=== PATIENT | female | born 1985 | race African-American/Black ===

== ENCOUNTER 2017-02-28 21:41 | Inpatient (IN) ==
[2017-02-28] MEDS ORDERED: LACTATED RINGERS 1,000 ML IV ONE (21:53)
[2017-02-28] MEDS ORDERED: MEPERIDINE 50 MG/1 ML VIAL IV PRN (21:53)
[2017-02-28] MEDS ORDERED: ONDANSETRON 4 MG/2 ML VIAL IV PRN ×3 (21:53→22:59)
[2017-02-28] MEDS ORDERED: BUTORPHANOL 1 MG/ML VIAL IV PRN (21:53)
[2017-02-28] MEDS ORDERED: OXYTOCIN/LR 20 UNIT/1,000 ML BAG IV ONE (21:56)
[2017-02-28] MEDS ORDERED: AMPICILLIN INJ 2,000 MG in SODIUM CHLORIDE 0.9% 100 ML IV SCH (22:00)
[2017-02-28 22:15] LABS: Basophils % 0.2 % (0.0-0.8); Eosinophils # 0.1 10*3/uL (0.0-0.87); Eosinophils % 0.9 % (0.00-10.9); Hemoglobin 10.8 GM/DL (12.0-16.0); Lymphocytes # 1.7 10*3/uL (1.4-4.0); Lymphocytes % 16.3 % (21.3-54.2); Mean Corpuscular HGB Conc 32.7 GM/DL (32-36); Mean Corpuscular Hemoglobin 27 PG (27-34); Mean Corpuscular Volume 82.3 FL (87-102); Mean Platelet Volume 11.5 FL (9.6-12.0); Monocytes # 0.6 10*3/uL (0.11-0.8); NRBC # 0.02 10*3/uL; Neutrophils # 7.8 10*3/uL (1.4-7.4); Neutrophils % 75.6 % (38.7-73.9); Platelet Count 157 T/CUMM (130-400); Red Blood Count 4.01 MC/CUMM (3.8-5.5); Red Cell Distribution Width 15.2 % (9.3-17.3); White Blood Count 10.2 T/CUMM (4-12)
[2017-02-28] MEDS ORDERED: ePHEDrine 50 MG/ML AMP IV PRN (22:23)
[2017-02-28] MEDS ORDERED: PROMETHAZINE 25 MG/1 ML VIAL IM ONE (22:23)
[2017-02-28] MEDS ORDERED: hydrOXYzine HCL 25 MG/1 ML VIAL IM PRN (22:23)
[2017-02-28] MEDS ORDERED: diphenhydrAMINE 50 MG/1 ML VIAL IV PRN ×2 (22:23)
[2017-02-28] MEDS ORDERED: fentaNYL 2 MCG/ROPIV 0.2% EPID 150 ML EPIDURAL SCH (22:23)
[2017-02-28] MEDS ORDERED: CITRIC ACID/SODIUM CITRATE 30 ML UDCUP PO ONE (22:26)
[2017-02-28] MEDS ORDERED: FAMOTIDINE 20 MG/2 ML VIAL IV ONE (22:26)
[2017-02-28 22:34] LABS: Alanine Aminotransferase 20 U/L (13-56); Albumin 2.3 G/DL (3.4-5.0); Alkaline Phosphatase 216 U/L (45-117); Aspartate Amino Transferase 30 U/L (0-37); Bilirubin,Total < 0.39 MG/DL (0.2-1.0); Blood Urea Nitrogen 4 MG/DL (7-18); Calcium 8.5 MG/DL (8.5-10.1); Glucose 99 MG/DL (74-106); Osmolality,Calculated 273.5 MOS/KG (273-304); Potassium 3.5 MMOL/L (3.5-5.1); Sodium 139 MMOL/L (136-145); Total Protein 7.1 G/DL (6.4-8.3)
[2017-02-28] MEDS: OXYTOCIN/LR 20 UNIT/1,000 ML BAG IV ONE (22:36)
[2017-02-28] MEDS ORDERED: LIDOCAINE 1% 50 ML VIAL ONE (22:45)
[2017-02-28 22:53] LABS: Cord Venous Blood HCO3 24.9 MMOL/L; Cord Venous Blood PCO2 37.4 MMHG; Cord Venous Blood PO2 27.7 MMHG
--- NOTE | 2017-02-28 22:55 | OB/GYN History & Physical ---
History of Present Illness Chief complaint: Active labor History of present illness: Ms. Escobedo is a 31 year old female 6 para 5 with 5 living kids and 39 weeks and 6 days. Patient arrived at 2150 approximately 3 cm dilated spontaneous rupture membranes and marla very regularly. Fluid demonstrated meconium staining. No active bleeding noted. heart tones are category 1. Home Medications Medication Instructions Recorded Confirmed Type No Known Home Medications [No 02/08/17 02/28/17 History Known Home Medications] Allergies Allergy/AdvReac Type Severity Reaction Status Date / Time No Known Allergies Allergy Verified 02/08/17 05:40 Medical,Surgical,& Family Hx - Medical History Reproductive: History of: Reproductive Problems (OVARY REMOVAL) No history of: Ectopic , Complication - Surgical History Reproductive Surgeries: Surgical HX of;: Gynecologic Surgery (Left ovary removed ) Patient denies;: Section - Family History Family History: Denies;: Family Anesthesia Reaction, Family Cancer, Family Diabetes, Family Heart Disease, Family Hypertension, Family Psychiatric Problems, Family Stroke - Social History Smoking Status: Current every day smoker 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 - Constitutional Vitals: Vital Signs Temp Pulse Resp BP Pulse Ox 02/28/17 21:56 97.1 F L 85 20 136/78 99 General appearance: mild distress - Antepartum / Post Antepartum Exam Cervix - Dilatation: 3 Effacement: 100% Station: -2 Rupture: Meconium - Head Head exam: Present: normal inspection - Eye Eye exam: Present: EOMI Pupils: Present: PINA - ENT ENT exam: Present: normal exam - Neck Neck exam: Present: normal inspection - Respiratory Respiratory exam: Present: clear to auscultation bilaterally - Breast Breasts: as per HPI Menstruation: as per HPI - Cardiovascular Cardiovascular exam: Present: regular rate and rhythm - GI/Abdominal GI/Abdominal exam: Present: normal bowel sounds - Extremities Exam Extremities exam: Present: normal inspection - Back Exam Back exam: Present: normal inspection - Neurological Exam Neurological exam: Present: alert, oriented X3 - Psychiatric Psychiatric exam: Present: normal affect, agitated, anxious - Skin Skin exam: Present: normal color Assessment and Plan (1) Active labor at term Status: Acute Assessment and plan: Anticipate Current Visit: Yes Results - Labs CBC & BMP: 02/28/17 22:11 02/28/17 22:11 Quality Measures - VTE Contraindication to Pharmacological VTE Prophylaxis: Clinical assessment deems Pt at low risk, no prophalaxis needed
--- NOTE | 2017-02-28 22:58 | Event Note ---
Stage I of labor patient admitted at 2150 heart tones category 1 Spontaneous rupture fluid meconium External monitoring Stage II Delivery of a female as I was arriving into the hospital. Delivery was 2234 Cord blood and cord gas obtained Apgars were 9 and 9 weight is pending mother is bonding at this time Stage III Spontaneous deliver the placenta 3 cord vessels noted Blood loss was less than 200 cc There was a left labial laceration that was repaired with 3-0 chromic using 2 interrupted sutures.
[2017-02-28] MEDS ORDERED: LANOLIN 50% CREAM 0.3 OZ TUBE TOP PRN (22:59)
[2017-02-28] MEDS ORDERED: MEASLES/MUMPS/RUBELLA VACCINE 0.5 ML VIAL SUBCUT ONE (22:59)
[2017-02-28] MEDS ORDERED: WITCH HAZEL PADS 100/JAR TOP PRN (22:59)
[2017-02-28] MEDS ORDERED: DIPH/TET/ACEL PERT BOOSTER VACCINE 0.5 ML VIAL IM ONE (22:59)
[2017-02-28] MEDS ORDERED: ACETAMINOPHEN 325 MG TABLET PO PRN (22:59)
[2017-02-28] MEDS ORDERED: RHO(D) IMMUNE GLOBULIN 300 MCG SYRINGE IM ONE (22:59)
[2017-02-28] MEDS ORDERED: BISACODYL 10 MG SUPP RECTAL PRN (22:59)
[2017-02-28] MEDS ORDERED: oxyCODONE/ACETAMINOPHEN 5-325 MG TABLET PO PRN ×2 (22:59)
[2017-02-28] MEDS ORDERED: HYDROCORTISONE 2.5% RECTAL CREAM 30 GM TUBE TOP PRN (22:59)
[2017-02-28] MEDS ORDERED: BENZOCAINE 20%/MENTHOL 0.5% SPRAY 56 GM CAN TOP PRN (22:59)
[2017-02-28] MEDS ORDERED: LACTATED RINGERS 1,000 ML IV SCH (23:00)
[2017-03-01] MEDS: OXYTOCIN/LR 20 UNIT/1,000 ML BAG IV ONE (01:55)
[2017-03-01] MEDS: IBUPROFEN 800 MG TABLET PO PRN ×2 (01:59→08:10)
[2017-03-01 05:22] LABS: Basophils % 0.1 % (0.0-0.8); Eosinophils # 0.1 10*3/uL (0.0-0.87); Eosinophils % 0.4 % (0.00-10.9); Hematocrit 34.3 VOL% (35.7-47.0); Hemoglobin 11.3 GM/DL (12.0-16.0); Immature Granulocytes % 0.7 %; Immature Granulocytes Absolute 0.09 #; Lymphocytes # 1.5 10*3/uL (1.4-4.0); Lymphocytes % 10.8 % (21.3-54.2); Mean Corpuscular HGB Conc 32.9 GM/DL (32-36); Mean Corpuscular Hemoglobin 28 PG (27-34); Mean Corpuscular Volume 83.9 FL (87-102); Mean Platelet Volume 11.9 FL (9.6-12.0); Monocytes # 0.7 10*3/uL (0.11-0.8); Monocytes % 4.9 % (1.7-12.7); Neutrophils # 11.4 10*3/uL (1.4-7.4); Neutrophils % 83.1 % (38.7-73.9); Platelet Count 148 T/CUMM (130-400); Red Blood Count 4.09 MC/CUMM (3.8-5.5); White Blood Count 13.7 T/CUMM (4-12)
[2017-03-01] MEDS: DOCUSATE SODIUM 100 MG CAPSULE PO SCH ×2 (08:11→20:20)
--- NOTE | 2017-03-01 09:31 | OB/GYN Progress Note ---
Assessment and Plan (1) Vaginal delivery Status: Acute Assessment and plan: Initiate routine orders. 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 Bonding well with infant. 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 - Constitutional Vitals: Vital Signs Temp Pulse Resp BP Pulse Ox 03/01/17 06:00 18 03/01/17 05:00 20 03/01/17 04:33 97.2 F L 59 L 18 123/70 03/01/17 04:00 18 03/01/17 03:00 18 03/01/17 02:03 97.1 F L 62 18 134/92 03/01/17 02:00 18 03/01/17 00:00 97.7 F 64 20 120/67 02/28/17 21:56 97.1 F L 85 20 136/78 99 General appearance: no acute distress - Antepartum / Post Post Exam Breast: bilateral: normal Abdomen obstetrics: Present: bowel sounds normal Vagina: Present: normal moisture, discharge (Moderate lochia rubra) Uterus exam: Present: enlarged (Fundus firm and midline) Anus/Rectum: Present: normal perianal skin - Respiratory Respiratory exam: Present: clear to auscultation bilaterally - Cardiovascular Cardiovascular exam: Present: regular rate and rhythm - GI/Abdominal GI/Abdominal exam: Present: normal bowel sounds, soft - Extremities Exam Extremities exam: Present: normal inspection - Back Exam Back exam: Present: normal inspection - Neurological Exam Neurological exam: Present: alert, oriented X3 - Psychiatric Psychiatric exam: Present: normal affect, normal mood - Skin Skin exam: Present: normal color, warm Results - Labs CBC & BMP: 03/01/17 04:41 02/28/17 22:11
[2017-03-02] MEDS: IBUPROFEN 800 MG TABLET PO PRN ×2 (01:51→10:44)
[2017-03-02 07:07] VITALS: BP 118/66
[2017-03-02] MEDS: DOCUSATE SODIUM 100 MG CAPSULE PO SCH (10:21)
--- NOTE | 2017-03-02 10:31 | Discharge Summary ---
Hospital Course - Hospital Course Hospital Course: Ms. Escobedo presented to the labor department in active labor. She subsequently delivered a viable infant with no complications. She has followed a normal course and she has done well. Her bleeding is minimal with no odor. Her vital signs and lab values are stable. She is bonding well with her . Her perineum is intact with no edema. Her fundus is firm and midline. Contraception options has been discussed with this patient and she desires to have her tubes tied. She was scheduled for elective bilateral tubal ligation in the near future. She will be discharged to home with prescriptions for pain and follow-up appointment in our office. Diagnosis - Discharge Diagnosis (1) Vaginal delivery Status: Acute Specialty Discharge - Follow Up or Referrals Follow up with: Bharat Rose MD [Physician] - 1 Month Discharge Plan - Discharge Data Disposition: Disch To Home/Self Care Condition at Discharge: Stable Discharge Diet: advance to your usual diet, regular diet Activity: resume usual activities as tolerated Hygiene: no restrictions Weight Bearing at Discharge: weight bear as tolerated Driving: no restrictions Contact your physician if you experience:: fever over 101, pain uncontrolled by pain medications - Discharge Medications New Ibuprofen Tab [Motrin Tab] 800 mg PO Q6H PRN #30 tablet PRN Reason: Pain Moderate (4-7) Acetamin/Codeine 300-30 Tab [Tylenol/Codeine #3] 2 tablet PO Q4H PRN #30 tablet PRN Reason: Pain Mild To Moderate (1-7) No Action No Known Home Medications [No Known Home Medications] - Follow Up or Referral Follow Up: Bharat Rose MD [Physician] - - Forms/Instructions Instructions: Perineal Care (DC), Vaginal Delivery (DC), Bleeding (DC) Exam - Constitutional Vitals: Period Temp Pulse Resp BP Sys/Ramos Pulse Ox Last 24 Hr 96.7 F-98.6 F 74-96 18-20 99-118/61-69 96-99 General appearance: no acute distress - Head Head exam: Present: normal inspection - Respiratory Respiratory exam: Present: clear to auscultation bilaterally - Cardiovascular Cardiovascular exam: Present: regular rate and rhythm - GI/Abdominal GI/Abdominal exam: Present: normal bowel sounds, soft - Extremities Exam Extremities exam: Present: normal inspection - Neurological Exam Neurological exam: Present: alert, oriented X3 - Psychiatric Psychiatric exam: Present: normal affect, normal mood - Skin Skin exam: Present: normal color, warm DS: Provider Date of admission: 02/28/17 21:53 Primary care physician: . No PCP Attending physician on admission: Bharat Rose MD Consults: 02/28/17 21:53 Consult to Anesthesiology [CONS] Routine Consulting Provider: Reason for Anesthesiology: Epidural Consult Comment: Epidural for pain managment 02/28/17 22:59 Consult to Computer Customer Support Specialist [CONS] Routine Consult Computer Customer Support Specialist: Breast Feeding Discharging clinician: Kamila Obrien CNM Expected date of discharge: 03/02/17
== END 2017-03-02 12:55 | disposition home or self-care (01) | DRG 560 ==
LOC: N.LDOUT 21:41 → N.LD 21:43 → N.OB 03-01 11:22
PROVIDERS: ADMIT Obstetrics & Gynecology; ATTEND Obstetrics & Gynecology

== ENCOUNTER 2019-01-05 04:00 | Inpatient (IN) ==
[2019-01-05] MEDS ORDERED: ONDANSETRON 4 MG/2 ML VIAL IV PRN (04:40)
[2019-01-05] MEDS ORDERED: BUTORPHANOL 2 MG/ML VIAL IV PRN (04:40)
[2019-01-05] MEDS ORDERED: MEPERIDINE 50 MG/1 ML VIAL IV PRN (04:40)
[2019-01-05] MEDS ORDERED: AMPICILLIN INJ 2,000 MG in SODIUM CHLORIDE 0.9% 100 ML IV ONE (04:44)
[2019-01-05] MEDS ORDERED: FAMOTIDINE 20 MG/2 ML VIAL IV PRN (04:45)
[2019-01-05] MEDS ORDERED: ePHEDrine 50 MG/ML AMP IV PRN (04:46)
[2019-01-05] MEDS ORDERED: CITRIC ACID/SODIUM CITRATE 30 ML UDCUP PO PRN (04:46)
[2019-01-05] MEDS ORDERED: LACTATED RINGERS 1,000 ML IV SCH ×2 (05:00→07:30)
[2019-01-05] MEDS ORDERED: fentaNYL 2 MCG/ROPIV 0.2% EPID 100 ML EPIDURAL SCH (05:00)
[2019-01-05 05:21] LABS: Basophils % 0.3 % (0.0-0.8); Eosinophils # 0.1 10*3/uL (0.0-0.87); Eosinophils % 0.7 % (0.00-10.9); Hematocrit 31.7 VOL% (35.7-47.0); Hemoglobin 9.8 GM/DL (12.0-16.0); Immature Granulocytes % 0.8 %; Immature Granulocytes Absolute 0.08 #; Lymphocytes # 2.1 10*3/uL (1.4-4.0); Lymphocytes % 20.8 % (21.3-54.2); Mean Corpuscular HGB Conc 30.9 GM/DL (32-36); Mean Corpuscular Volume 75.3 FL (87-102); Mean Platelet Volume 11.7 FL (9.6-12.0); Monocytes % 7.4 % (1.7-12.7); Platelet Count 145 T/CUMM (130-400); Red Blood Count 4.21 MC/CUMM (3.8-5.5); Red Cell Distribution Width 16.5 % (9.3-17.3)
[2019-01-05] MEDS ORDERED: miSOPROStol 200 MCG TABLET ONE (05:23)
[2019-01-05] MEDS ORDERED: LIDOCAINE 1% 50 ML VIAL ONE (05:23)
[2019-01-05 05:50] LABS: Anisocytosis Slight; Microcytosis 3+
[2019-01-05 05:51] LABS: Polychromasia Slight; Tear Drop Cells Few
[2019-01-05] MEDS: OXYTOCIN/LR 20 UNIT/1,000 ML BAG IV SCH ×2 (05:51→09:00)
[2019-01-05 05:52] LABS: Hypochromasia Slight; Platelet Estimate Normal; Stomatocytes Slight
[2019-01-05 05:53] LABS: Alanine Aminotransferase 11 U/L (13-56); Albumin 2.2 G/DL (3.4-5.0); Alkaline Phosphatase 220 U/L (45-117); Aspartate Amino Transferase 23 U/L (0-37); Bilirubin,Total < 0.39 MG/DL (0.2-1.0); Blood Urea Nitrogen 7 MG/DL (7-18); Calcium 8.6 MG/DL (8.5-10.1); Glucose 85 MG/DL (74-106); Osmolality,Calculated 273.5 MOS/KG (273-304); Total Protein 7.1 G/DL (6.4-8.3)
[2019-01-05 06:02] LABS: Cord Venous Blood HCO3 23.7 MMOL/L; Cord Venous Blood PCO2 37.2 MMHG; Cord Venous Blood PO2 35.2
[2019-01-05] MEDS ORDERED: ACETAMINOPHEN 325 MG TABLET PO PRN (07:13)
[2019-01-05] MEDS ORDERED: BISACODYL 10 MG SUPP RECTAL PRN (07:13)
[2019-01-05] MEDS ORDERED: MAGNESIUM HYDROXIDE SUSP 30 ML UDCUP PO PRN (07:13)
[2019-01-05 07:36] LABS: Hepatitis B Surface Ag Quant < 0.10 Index; Hepatitis B Surface Ag Result Negative (Negative)
[2019-01-05 08:19] LABS: HIV Antigen/Antibody Result Nonreactive (Nonreactive)
[2019-01-05] MEDS: IBUPROFEN 800 MG TABLET PO PRN ×2 (08:58→20:07)
[2019-01-05] MEDS: DOCUSATE SODIUM 100 MG CAPSULE PO SCH ×2 (08:59→20:12)
[2019-01-05] MEDS ORDERED: AMPICILLIN INJ 1,000 MG in SODIUM CHLORIDE 0.9% 100 ML IV SCH (09:00)
[2019-01-05] MEDS ORDERED: MULTIVITAMIN (PRENATAL) TABLET PO SCH (12:09)
[2019-01-05] MEDS ORDERED: BENZOCAINE 20%/MENTHOL 0.5% SPRAY 56 GM CAN TOP PRN (19:56)
[2019-01-05] MEDS: MULTIVITAMIN (PRENATAL) TABLET PO SCH (21:59)
[2019-01-06 05:17] LABS: Basophils % 0.5 % (0.0-0.8); Eosinophils # 0.2 10*3/uL (0.0-0.87); Eosinophils % 2.3 % (0.00-10.9); Hematocrit 29.8 VOL% (35.7-47.0); Hemoglobin 9.1 GM/DL (12.0-16.0); Immature Granulocytes % 0.7 %; Immature Granulocytes Absolute 0.06 #; Lymphocytes # 2.1 10*3/uL (1.4-4.0); Lymphocytes % 24.9 % (21.3-54.2); Mean Corpuscular HGB Conc 30.5 GM/DL (32-36); Mean Corpuscular Volume 75.8 FL (87-102); NRBC # 0.02 10*3/uL; Neutrophils % 64.6 % (38.7-73.9); Platelet Count 145 T/CUMM (130-400); Red Blood Count 3.93 MC/CUMM (3.8-5.5); Red Cell Distribution Width 16.5 % (9.3-17.3); White Blood Count 8.6 T/CUMM (4-12)
[2019-01-06 05:45] LABS: Anisocytosis 1+; Hypochromasia 1+; Microcytosis 1+; Platelet Estimate Adequate
[2019-01-06] MEDS: IBUPROFEN 800 MG TABLET PO PRN ×2 (08:51→16:12)
[2019-01-06] MEDS: DOCUSATE SODIUM 100 MG CAPSULE PO SCH ×2 (08:52→20:43)
[2019-01-06] MEDS: MULTIVITAMIN (PRENATAL) TABLET PO SCH (08:53)
[2019-01-06] MEDS ORDERED: ALUMINUM/MAGNES/SIMETH MAX STR 30 ML UDCUP PO PRN (20:32)
[2019-01-07] MEDS ORDERED: ONDANSETRON 4 MG TABLET PO PRN (03:54)
[2019-01-07] MEDS: IBUPROFEN 800 MG TABLET PO PRN (04:55)
[2019-01-07 05:14] LABS: Basophils % 0.4 % (0.0-0.8); Eosinophils # 0.3 10*3/uL (0.0-0.87); Immature Granulocytes % 1.2 %; Lymphocytes # 2.4 10*3/uL (1.4-4.0); Lymphocytes % 29.6 % (21.3-54.2); Mean Corpuscular Volume 76.5 FL (87-102); Mean Platelet Volume 12.2 FL (9.6-12.0); Monocytes % 5.8 % (1.7-12.7); NRBC # 0.03 10*3/uL; Platelet Count 162 T/CUMM (130-400); Red Blood Count 3.79 MC/CUMM (3.8-5.5); Red Cell Distribution Width 16.8 % (9.3-17.3); White Blood Count 8.2 T/CUMM (4-12)
[2019-01-07 07:20] VITALS: BP 105/60
[2019-01-07] MEDS: MULTIVITAMIN (PRENATAL) TABLET PO SCH (07:59)
[2019-01-07] MEDS: DOCUSATE SODIUM 100 MG CAPSULE PO SCH (08:01)
== END 2019-01-07 11:40 | disposition home or self-care (01) | DRG 560 ==
LOC: N.LDOUT 04:00 → N.LD 04:02 → N.OB 11:00
PROVIDERS: ADMIT Obstetrics & Gynecology; ATTEND Obstetrics & Gynecology

== ENCOUNTER 2020-10-11 20:24 | Inpatient (IN) ==
[2020-10-11] MEDS ORDERED: MEPERIDINE 50 MG/1 ML VIAL IV PRN (20:34)
[2020-10-11] MEDS ORDERED: BUTORPHANOL 2 MG/ML VIAL IV PRN (20:34)
[2020-10-11] MEDS ORDERED: ONDANSETRON 4 MG/2 ML VIAL IV PRN (20:34)
[2020-10-11 21:07] LABS: Basophils % 0.3 % (0.0-0.8); Eosinophils # 0.2 10*3/uL (0.0-0.87); Eosinophils % 1.4 % (0.00-10.9); Hematocrit 34.3 VOL% (35.7-47.0); Hemoglobin 11.4 GM/DL (12.0-16.0); Immature Granulocytes % 0.8 %; Immature Granulocytes Absolute 0.09 #; Lymphocytes # 2.1 10*3/uL (1.4-4.0); Lymphocytes % 18.4 % (21.3-54.2); Mean Corpuscular HGB Conc 33.2 GM/DL (32-36); Mean Corpuscular Volume 80.3 FL (87-102); Mean Platelet Volume 12.1 FL (9.6-12.0); Monocytes % 4.1 % (1.7-12.7); NRBC # 0.02 10*3/uL; Platelet Count 137 T/CUMM (130-400); Red Blood Count 4.27 MC/CUMM (3.8-5.5); Red Cell Distribution Width 14.2 % (9.3-17.3); White Blood Count 11.2 T/CUMM (4-12)
[2020-10-11] MEDS ORDERED: OXYTOCIN/LR 20 UNIT/1,000 ML BAG IV PRN (21:13)
[2020-10-11] MEDS ORDERED: AMPICILLIN INJ 2,000 MG in SODIUM CHLORIDE 0.9% 100 ML IV ONE (21:20)
[2020-10-11 21:27] LABS: Alanine Aminotransferase 23 U/L (13-56); Albumin 2.5 G/DL (3.4-5.0); Alkaline Phosphatase 242 U/L (45-117); Aspartate Amino Transferase 29 U/L (0-37); Bilirubin,Total < 0.39 MG/DL (0.2-1.0); Blood Urea Nitrogen 8 MG/DL (7-18); Calcium 8.7 MG/DL (8.5-10.1); Carbon Dioxide 24 MMOL/L (21-32); Estimated Glom Filtration Rate 158 ML/MIN; Glucose 117 MG/DL (74-106); Osmolality,Calculated 275.5 MOS/KG (273-304); Potassium 3.1 MMOL/L (3.5-5.1); Sodium 139 MMOL/L (136-145); Total Protein 7.2 G/DL (6.4-8.2)
[2020-10-11] MEDS: LACTATED RINGERS 1,000 ML IV SCH (22:47)
[2020-10-12] MEDS: LACTATED RINGERS 1,000 ML IV SCH ×3 (01:37→08:28)
[2020-10-12] MEDS: AMPICILLIN INJ 1,000 MG in SODIUM CHLORIDE 0.9% 100 ML IV SCH ×3 (01:41→10:25)
[2020-10-12] MEDS ORDERED: POTASSIUM CHLORIDE RIDER 10 MEQ in PREMIX 1 EACH IV PRN (06:17)
[2020-10-12] MEDS ORDERED: NALOXONE 0.4 MG/ML VIAL IV PRN (07:41)
[2020-10-12] MEDS ORDERED: CITRIC ACID/SODIUM CITRATE 30 ML UDCUP PO ONE (07:41)
[2020-10-12] MEDS ORDERED: FAMOTIDINE 20 MG/2 ML VIAL IV ONE (07:41)
[2020-10-12] MEDS ORDERED: PROMETHAZINE 25 MG/1 ML VIAL IM PRN (07:41)
[2020-10-12] MEDS ORDERED: hydrOXYzine HCL 25 MG/1 ML VIAL IM PRN (07:41)
[2020-10-12] MEDS ORDERED: diphenhydrAMINE 50 MG/1 ML VIAL IV PRN (07:41)
[2020-10-12] MEDS ORDERED: ePHEDrine 50 MG/ML VIAL IV PRN (07:41)
[2020-10-12] MEDS ORDERED: fentaNYL 2 MCG/ROPIV 0.2% EPID 100 ML EPIDURAL SCH (08:00)
[2020-10-12 10:35] LABS: Bilirubin,Urine Negative (Negative); Blood, Urine Negative (Negative); Glucose,Urine (UA) Negative (Negative); Ketones,Urine Negative (Negative); Mucus,Urine Occasional /LPF (Occasional); Nitrite,Urine Negative (Negative); Protein,Urine Negative; Squamous Epithelial Cell,Urine Occasional /HPF (0-10); Urine Appearance CLEAR (Clear); Urine Color Straw (Yellow); Urine Specific Gravity 1.006 (1.001-1.035); Urine Urobilinogen < 2.0 EU/DL (0.2-1.0); WBC,Urine 1 /HPF (0-6)
[2020-10-12] MEDS ORDERED: miSOPROStoL 200 MCG TABLET ONE (11:49)
[2020-10-12] MEDS ORDERED: METHYLERGONOVINE 0.2 MG/1 ML AMP ONE (11:49)
[2020-10-12] MEDS ORDERED: CARBOPROST TROMETHAMINE 250 MCG/ML AMP IM ONE (11:50)
[2020-10-12] MEDS ORDERED: OXYTOCIN/LR 30 UNIT/1,000 ML BAG IV ONE (11:53)
[2020-10-12 12:33] LABS: Cord Arterial Blood HCO3 24.2 MMOL/L
[2020-10-12 12:36] LABS: Cord Venous Blood HCO3 23.8 MMOL/L; Cord Venous Blood PCO2 42.2 MMHG; Cord Venous Blood PO2 30.5
[2020-10-12] MEDS ORDERED: POTASSIUM CHLORIDE 20 MEQ TABLET PO PRN (15:50)
[2020-10-12] MEDS ORDERED: IBUPROFEN 800 MG TABLET PO PRN ×2 (16:04→16:28)
[2020-10-12] MEDS: POTASSIUM CHLORIDE 20 MEQ TABLET PO PRN ×4 (16:20→22:45)
[2020-10-12] MEDS ORDERED: ACETAMINOPHEN 325 MG TABLET PO PRN (16:28)
[2020-10-12] MEDS ORDERED: ONDANSETRON 4 MG/2 ML VIAL IV PRN (16:28)
[2020-10-12] MEDS ORDERED: BISACODYL 10 MG SUPP RECTAL PRN (16:28)
[2020-10-12] MEDS ORDERED: MAGNESIUM HYDROXIDE SUSP 30 ML UDCUP PO PRN (16:28)
[2020-10-12] MEDS ORDERED: LACTATED RINGERS 1,000 ML IV SCH (16:30)
[2020-10-12] MEDS ORDERED: OXYTOCIN/LR 20 UNIT/1,000 ML BAG IV ONE (17:46)
[2020-10-12] MEDS: DOCUSATE SODIUM 100 MG CAPSULE PO SCH (20:26)
[2020-10-12] MEDS ORDERED: DOCUSATE SODIUM 100 MG CAPSULE PO SCH (21:00)
[2020-10-13 05:12] LABS: Basophils % 0.2 % (0.0-0.8); Eosinophils # 0.2 10*3/uL (0.0-0.87); Eosinophils % 1.9 % (0.00-10.9); Hematocrit 33.6 VOL% (35.7-47.0); Hemoglobin 10.6 GM/DL (12.0-16.0); Immature Granulocytes % 0.7 %; Immature Granulocytes Absolute 0.08 #; Lymphocytes # 2.1 10*3/uL (1.4-4.0); Lymphocytes % 19.2 % (21.3-54.2); Mean Corpuscular HGB Conc 31.5 GM/DL (32-36); Mean Corpuscular Volume 82.8 FL (87-102); Mean Platelet Volume 12.6 FL (9.6-12.0); Monocytes % 6.4 % (1.7-12.7); Neutrophils % 71.6 % (38.7-73.9); Platelet Count 126 T/CUMM (130-400); Red Blood Count 4.06 MC/CUMM (3.8-5.5); Red Cell Distribution Width 14.4 % (9.3-17.3); White Blood Count 10.9 T/CUMM (4-12)
[2020-10-13 05:33] LABS: Hypochromasia 1+; Microcytosis 1+
[2020-10-13] MEDS: IBUPROFEN 800 MG TABLET PO PRN ×3 (05:37→21:21)
[2020-10-13] MEDS: MULTIVITAMIN (PRENATAL) TABLET PO SCH (09:34)
[2020-10-13] MEDS: DOCUSATE SODIUM 100 MG CAPSULE PO SCH ×2 (09:34→21:21)
[2020-10-14 07:14] VITALS: BP 96/58
[2020-10-14] MEDS: IBUPROFEN 800 MG TABLET PO PRN (07:37)
[2020-10-14] MEDS: DOCUSATE SODIUM 100 MG CAPSULE PO SCH (08:02)
[2020-10-14] MEDS: MULTIVITAMIN (PRENATAL) TABLET PO SCH (08:05)
== END 2020-10-14 11:45 | disposition home or self-care (01) | DRG 560 ==
LOC: N.LDOUT 20:24 → N.LD 20:26 → N.OB 10-12 15:25
PROVIDERS: ADMIT Obstetrics & Gynecology; ATTEND Obstetrics & Gynecology

== ENCOUNTER 2022-07-25 19:36 | Inpatient (IN) ==
[2022-07-25 20:09] LABS: Bilirubin,Urine Negative (Negative); Blood, Urine Negative (Negative); Glucose,Urine (UA) Negative (Negative); Ketones,Urine Negative (Negative); Nitrite,Urine Negative (Negative); Protein,Urine Negative (Negative); Urine Appearance Clear (Clear); Urine Color Yellow (Yellow); Urine Specific Gravity 1.015 (1.001-1.035); Urine Urobilinogen 0.2 eU/dL (<2.0)
[2022-07-25 20:14] LABS: Bacteria,Urine Occasional /HPF (Few); Mucus,Urine Occasional /LPF (Occasional); RBC,Urine 2 /HPF (0-4); Squamous Epithelial Cell,Urine Occasional /HPF (0-10)
[2022-07-25] MEDS ORDERED: TERBUTALINE 1 MG/1 ML VIAL SUBCUT ONE (20:20)
[2022-07-25] MEDS ORDERED: LACTATED RINGERS 1,000 ML IV ONE (20:20)
[2022-07-25] MEDS ORDERED: PROMETHAZINE 25 MG/1 ML VIAL IM ONE (22:08)
[2022-07-25] MEDS ORDERED: MEPERIDINE 25 MG/1 ML VIAL IM ONE (22:08)
[2022-07-25] MEDS ORDERED: LACTATED RINGERS 1,000 ML IV SCH (23:00)
[2022-07-25] MEDS ORDERED: TRANEXAMIC ACID 1,000 MG in SODIUM CHLORIDE 0.9% 100 ML IV PRN (23:41)
[2022-07-25] MEDS ORDERED: miSOPROStoL 200 MCG TABLET RECTAL PRN (23:41)
[2022-07-25] MEDS ORDERED: METHYLERGONOVINE 0.2 MG/1 ML AMP IM PRN (23:41)
[2022-07-25] MEDS ORDERED: ONDANSETRON 4 MG/2 ML VIAL IV PRN (23:41)
[2022-07-25] MEDS ORDERED: CARBOPROST TROMETHAMINE 250 MCG/ML AMP IM PRN (23:41)
[2022-07-25] MEDS ORDERED: MEPERIDINE 50 MG/1 ML VIAL IV PRN (23:41)
[2022-07-25] MEDS ORDERED: LACTATED RINGERS 500 ML IV PRN (23:41)
[2022-07-25] MEDS ORDERED: CITRIC ACID/SODIUM CITRATE 30 ML UDCUP PO ONE (23:44)
[2022-07-25] MEDS ORDERED: FAMOTIDINE 20 MG/2 ML VIAL IV ONE (23:44)
[2022-07-25] MEDS ORDERED: fentaNYL 2 MCG/ROPIV 0.2% EPID 100 ML EPIDURAL SCH (23:45)
[2022-07-25] MEDS ORDERED: OXYTOCIN/LR 30 UNIT/1,000 ML BAG IV PRN (23:45)
[2022-07-25] MEDS ORDERED: diphenhydrAMINE 50 MG/1 ML VIAL IV PRN ×2 (23:50)
[2022-07-25] MEDS ORDERED: PROMETHAZINE 25 MG/1 ML VIAL IM PRN (23:50)
[2022-07-25] MEDS ORDERED: ePHEDrine 50 MG/ML VIAL IV PRN (23:50)
[2022-07-25] MEDS ORDERED: hydrOXYzine HCL 25 MG/1 ML VIAL IM PRN (23:50)
[2022-07-25] MEDS ORDERED: NALOXONE 0.4 MG/ML VIAL IV PRN (23:50)
[2022-07-26] MEDS ORDERED: AMPICILLIN INJ 2,000 MG in SODIUM CHLORIDE 0.9% 100 ML IV ONE
[2022-07-26 00:36] LABS: Basophils % 0.2 % (0.0-0.8); Eosinophils # 0.1 10*3/uL (0.0-0.87); Eosinophils % 0.6 % (0.00-10.9); Hematocrit 34.9 VOL% (35.7-47.0); Hemoglobin 11.5 GM/DL (12.0-16.0); Immature Granulocytes % 0.6 %; Immature Granulocytes Absolute 0.06 #; Lymphocytes # 1.6 10*3/uL (1.4-4.0); Lymphocytes % 14.9 % (21.3-54.2); Mean Corpuscular Volume 83.9 FL (87-102); Mean Platelet Volume 14.2 FL (9.6-12.0); Monocytes # 0.5 10*3/uL (0.11-0.8); Monocytes % 4.6 % (1.7-12.7); Neutrophils % 79.1 % (38.7-73.9); Platelet Count 149 T/CUMM (130-400); Red Blood Count 4.16 MC/CUMM (3.8-5.5); Red Cell Distribution Width 16.4 % (9.3-17.3); White Blood Count 10.78 T/CUMM (4-12)
[2022-07-26 00:46] LABS: Alanine Aminotransferase 11 U/L (13-56); Albumin 2.6 G/DL (3.4-5.0); Alkaline Phosphatase 181 U/L (45-117); Aspartate Amino Transferase 14 U/L (0-37); Bilirubin,Total < 0.39 MG/DL (0.20-1.00); Blood Urea Nitrogen 8 MG/DL (7-18); Calcium 9.1 MG/DL (8.5-10.1); Carbon Dioxide 23 MMOL/L (21-32); Chloride 105 MMOL/L (98-107); Glucose 75 MG/DL (74-106); Osmolality,Calculated 271.7 MOS/KG (273-304); Potassium 3.8 MMOL/L (3.5-5.1); Sodium 138 MMOL/L (136-145); Total Protein 7.4 G/DL (6.4-8.2)
[2022-07-26 01:14] LABS: HIV Antigen/Antibody Result Nonreactive (Nonreactive); Hepatitis B Surface Ag Quant 0.13 Index; Hepatitis B Surface Ag Result Non-Reactive (NonReactive); Rubella Antibody IgG Result Reactive (NonReactive)
[2022-07-26 01:22] LABS: Cord Venous Blood HCO3 23.9 MMOL/L; Cord Venous Blood PCO2 40.5 MMHG
[2022-07-26] MEDS ORDERED: ACETAMINOPHEN 325 MG TABLET PO PRN (01:42)
[2022-07-26] MEDS ORDERED: LANOLIN 50% CREAM 0.3 OZ TUBE TOP PRN (01:42)
[2022-07-26] MEDS ORDERED: RHO(D) IMMUNE GLOBULIN 300 MCG SYRINGE IM ONE (01:42)
[2022-07-26] MEDS ORDERED: BENZOCAINE 20%/MENTHOL 0.5% SPRAY 56 GM CAN TOP PRN (01:42)
[2022-07-26] MEDS ORDERED: ONDANSETRON 4 MG/2 ML VIAL IV PRN (01:42)
[2022-07-26] MEDS ORDERED: OXYTOCIN/LR 20 UNIT/1,000 ML BAG IV ONE (01:42)
[2022-07-26] MEDS ORDERED: WITCH HAZEL PADS 100/JAR TOP PRN (01:42)
[2022-07-26] MEDS ORDERED: HYDROCORTISONE 2.5% RECTAL CREAM 30 GM TUBE TOP PRN (01:42)
[2022-07-26] MEDS ORDERED: oxyCODONE/ACETAMINOPHEN 5-325 MG TABLET PO PRN ×2 (01:42)
[2022-07-26] MEDS ORDERED: DIPH/TET/ACEL PERT BOOSTER VACCINE 0.5 ML VIAL IM ONE (01:42)
[2022-07-26] MEDS ORDERED: BISACODYL 10 MG SUPP RECTAL PRN (01:42)
[2022-07-26] MEDS ORDERED: MEASLES/MUMPS/RUBELLA VACCINE 0.5 ML VIAL SUBCUT ONE (01:42)
[2022-07-26] MEDS: IBUPROFEN 800 MG TABLET PO PRN ×3 (02:32→20:49)
[2022-07-26 02:57] LABS: RPR Confirm - Less than 1 yr REACTIVE (Nonreactive)
[2022-07-26] MEDS ORDERED: OXYTOCIN/LR 30 UNIT/1,000 ML BAG IV PRN (03:32)
[2022-07-26] MEDS: DOCUSATE SODIUM 100 MG CAPSULE PO SCH ×2 (09:31→20:48)
[2022-07-26 09:36] LABS: Basophils % 0.2 % (0.0-0.8); Eosinophils # 0.1 10*3/uL (0.0-0.87); Eosinophils % 0.5 % (0.00-10.9); Hematocrit 32.2 VOL% (35.7-47.0); Hemoglobin 10.7 GM/DL (12.0-16.0); Immature Granulocytes % 0.4 %; Immature Granulocytes Absolute 0.05 #; Lymphocytes # 1.6 10*3/uL (1.4-4.0); Lymphocytes % 12.8 % (21.3-54.2); Mean Corpuscular HGB Conc 33.2 GM/DL (32-36); Mean Corpuscular Volume 83.9 FL (87-102); Mean Platelet Volume 12.3 FL (9.6-12.0); Monocytes # 0.6 10*3/uL (0.11-0.8); Monocytes % 4.7 % (1.7-12.7); Neutrophils % 81.4 % (38.7-73.9); Platelet Count 135 T/CUMM (130-400); Red Blood Count 3.84 MC/CUMM (3.8-5.5); White Blood Count 12.69 T/CUMM (4-12)
[2022-07-27 06:26] LABS: Basophils % 0.2 % (0.0-0.8); Eosinophils # 0.2 10*3/uL (0.0-0.87); Eosinophils % 2.4 % (0.00-10.9); Hematocrit 30.2 VOL% (35.7-47.0); Immature Granulocytes % 0.6 %; Immature Granulocytes Absolute 0.05 #; Lymphocytes # 2.1 10*3/uL (1.4-4.0); Lymphocytes % 24.5 % (21.3-54.2); Mean Corpuscular HGB Conc 33.1 GM/DL (32-36); Mean Corpuscular Volume 84.6 FL (87-102); Mean Platelet Volume 12.7 FL (9.6-12.0); Monocytes # 0.4 10*3/uL (0.11-0.8); Neutrophils % 67.3 % (38.7-73.9); Platelet Count 134 T/CUMM (130-400); Red Blood Count 3.57 MC/CUMM (3.8-5.5); Red Cell Distribution Width 16.2 % (9.3-17.3)
[2022-07-27 07:12] LABS: Eosinophils 3 % (0-10); Hypochromia Slight; Lymphocytes 27 % (20-55); Microcytosis Slight; Platelet Estimate Adequate; Total Cells Counted 100
[2022-07-27 07:37] VITALS: BP 99/56
[2022-07-27] MEDS: IBUPROFEN 800 MG TABLET PO PRN (09:41)
[2022-07-27] MEDS: DOCUSATE SODIUM 100 MG CAPSULE PO SCH (09:41)
== END 2022-07-27 13:55 | disposition home or self-care (01) | DRG 560 ==
LOC: N.LDOUT 19:36 → N.LD 19:37 → N.OB 07-26 02:55
PROVIDERS: ADMIT Obstetrics & Gynecology; ATTEND Obstetrics & Gynecology